=== PATIENT | male | born 1990 | race Caucasian/White ===

== ENCOUNTER 2020-12-15 21:16 | Emergency (ER) | payer SELFPAY ==
[2020-12-15] MEDS ORDERED: Sodium Chloride 0.9% 1,000 ML IV STA (21:50)
[2020-12-15] MEDS ORDERED: Ondansetron 4 MG/2 ML SDV IVPUSH ONE (21:50)
[2020-12-15] MEDS ORDERED: HYDROmorphone 0.5 MG/0.5 ML Syringe IVPUSH ONE ×2 (21:50→22:59)
[2020-12-15] MEDS ORDERED: Sodium Chloride 0.9% 10 ML SDV FLUSH ONE (21:57)
[2020-12-15] MEDS ORDERED: Iopamidol 755 Mg/ML 100 ML Bottle IVPUSH ONE (21:57)
[2020-12-15] MEDS ORDERED: Sodium Chloride 0.9% 100 ML IV SCH (22:00)
--- NOTE | 2020-12-15 22:19 | EDM.PDOC ---
<Teja Arnold - Last Filed: 12/16/20 08:23> ED HPI GENERAL MEDICAL PROBLEM - General Chief Complaint: Respiratory Problem Stated Complaint: LOW O2/SPITTING UP BLOOD Time Seen by Provider: 12/15/20 21:44 - Related Data Allergies Allergy/AdvReac Type Severity Reaction Status Date / Time No Known Allergies Allergy Verified 12/15/20 21:34 Home Meds: Home Meds Hydrocodone/Acetaminophen [HYDROcodone-Acetaminophen 5-325 MG] 5 - 325 mg PO Q4H PRN 12/15/20 [History] levoFLOXacin [Levaquin] 250 mg PO DAILY 12/15/20 [History] Acetaminophen/oxyCODONE [Percocet 325-10 MG] 1 - 2 tab PO Q6H PRN #20 tab 12/16/20 [Rx] Course - Re-Assessments/Exams Free Text/Narrative Re-Assessment/Exam: 12/16/20 07:[address] Cobb at 07:53. He reviewed the CT scan and agree that the patient has COVID-19, but not a great deal of pleural effusion. He did not feel that the patient's hypoxemia was related to the pleural effusion. He felt that the risk of complications from a thoracentesis would be high, and that the risks outweigh the benefit. 12/16/20 08:[address] Cobb discussed with the patient and his sister Ashlyn, over the phone. I will discharge the patient home with a prescription for Percocet. He already has supplemental oxygen finger pulse oximeter at home. He states that [place] about 100 miles away, therefore I am not going to refer him to our clinic, but he stated that he could arrange to establish a PCP near his home. I recommended that if he requires a significantly increasing need of oxygen to maintain an adequate SpO2, that he go to the nearest ED for reevaluation. Departure - Departure Time of Disposition: 08:24 Disposition: Home, Self-Care 01 Condition: Good Clinical Impression: COVID-19, Pleural effusion - Discharge Information *PRESCRIPTION DRUG MONITORING PROGRAM REVIEWED*: No *COPY OF PRESCRIPTION DRUG MONITORING REPORT IN PATIENT MERI: No Prescriptions: Acetaminophen/oxyCODONE [Percocet 325-10 MG] 1 - 2 tab PO Q6H PRN #20 tab PRN Reason: Pain (Severe 7-10) Instructions: COVID-19, Pleural Effusion Referrals: PCP,None [Primary Care Provider] - Forms: ED Department Discharge Additional Instructions: You were seen in the emergency room for left-sided chest pain in the setting of being diagnosed with COVID-19 on 11/22/2020. Work-up in the ER included several blood tests, a chest x-ray, a CT angiogram of your chest, and an ECG. The CT scan found a moderate-sized left-sided pleural effusion, but no pulmonary embolus. The pleural effusion is most likely the cause of your left-sided chest pain. Your case was discussed with our Surgeon, who reviewed your CT scan, and felt that the risks of trying to drain the fluid out of your chest outweighed the potential benefits. We recommend that you take [id number] ibuprofen, 3 tablets (600 mg) up to every 8 hours, with food, as needed for discomfort. A prescription for the opioid pain reliever Percocet has been provided to you. You may take 1 to 2 tablets of Percocet up to every 6 hours, as needed for pain not relieved by ibuprofen. If you take Percocet, do not drive or operate heavy machinery for 12 hours afterwards. Percocet may cause constipation, so consider taking a stool softener. Stay adequately hydrated. We recommend that you establish a primary care provider near where you live. We recommend that you continue to check your oxygen saturation several times a day. Your goal oxygen saturation is 92 to 94%. If you require a significantly increased need for supplemental oxygen in order to maintain an adequate oxygen saturation, please go to the nearest ER for reevaluation. <Iram Mullen - Last Filed: 12/18/20 15:18> ED HPI GENERAL MEDICAL PROBLEM - General Source of Information: Reports: Patient, Family, RN Notes Reviewed History Limitations: Reports: No Limitations - History of Present Illness INITIAL COMMENTS - FREE TEXT/NARRATIVE: Patient is a 30-year-old male presenting to the emergency department with complaints of hemoptysis, significant shortness of breath, and severe chest wall pain. He was diagnosed as Covid positive on November 22. He continues have cough and shortness of breath, therefore he was seen at [facility] on 05 December. He was diagnosed with pneumonia and started on a course of dexamethasone, azithromycin, and cefdinir. At that time, there was a small amount of blood in his sputum. Hemoptysis has continued. He was seen in the emergency department in [facility] on Wednesday. He had work-up there including CT angiogram of the chest. They confirm that he continues to have pneumonia and that his left lung "looks horrible ". They indicate that he likely needs referral to pulmonology. His oxygen saturation was found to be in the upper 80s and low 90s. He was sent home with oxygen to be used as needed as well as a new prescription for Levaquin and [place] for pain. He has been wearing 1 L of oxygen by nasal cannula at home with saturations in the low to mid 90s. He took a [place] around 7 PM this evening with little relief. Complains of intense left- sided chest wall pain worsened with deep breathing or coughing. Patient's girlfriend works at the hospital in [place] and questions the accuracy of the CT angiogram. They are requesting the test be repeated as she feels he may have a pulmonary embolus. Patient reports that the hemoptysis is worsening. Prior to his Covid diagnosis, patient had no chronic medical conditions. Left Chest Pain Score (Numeric/FACES): 10 Past Medical History HEENT History: Reports: Impaired Vision - Infectious Disease History Infectious Disease History: Reports: Novel Coronavirus Social & Family History - Tobacco Use Tobacco Use Status *Q: Never Tobacco User - Caffeine Use Caffeine Use: Reports: Coffee - Recreational Drug Use Recreational Drug Use: No ED ROS GENERAL - Review of Systems Review Of Systems: See Below Constitutional: Reports: No Symptoms. Denies: Fever, Chills HEENT: Reports: No Symptoms Respiratory: Reports: Shortness of Breath, Pleuritic Chest Pain, Cough, Sputum, Hemoptysis Cardiovascular: Reports: Dyspnea on Exertion. Denies: Palpitations, Syncope Endocrine: Reports: No Symptoms GI/Abdominal: Reports: No Symptoms : Reports: No Symptoms Musculoskeletal: Reports: Other (Significant left-sided chest wall pain.) Skin: Reports: No Symptoms Neurological: Reports: No Symptoms Psychiatric: Reports: No Symptoms Hematologic/Lymphatic: Reports: No Symptoms Immunologic: Reports: No Symptoms ED EXAM, GENERAL - Physical Exam Exam: See Below Exam Limited By: No Limitations General Appearance: Alert, Moderate Distress Respiratory/Chest: No Respiratory Distress, No Accessory Muscle Use, Other (Significantly decreased breath sounds throughout the left posterior lung qiu scattered rhonchi throughout both lungs. Significant left-sided chest wall tenderness to palpation.) Cardiovascular: Normal Peripheral Pulses, Regular Rate, Rhythm, No Edema, No Gallop, No JVD, No Murmur, No Rub GI/Abdominal: Normal Bowel Sounds, Soft, Non-Tender, No Organomegaly, No Distention, No Abnormal Bruit, No Mass Neurological: Alert, Oriented, CN II-XII Intact, Normal Cognition, Normal Gait, Normal Reflexes, No Motor/Sensory Deficits Psychiatric: Normal Affect, Normal Mood Skin Exam: Warm, Dry, Intact, Normal Color, No Rash #1 Interpretation EKG Date: 12/15/20 Time: 21:59 Rhythm: NSR Rate (Beats/Min): 113 Mobile: Normal P-Wave: Present QRS: Normal ST-T: Normal QT: Normal Course - Vital Signs Last Recorded V/S: Last Vital Signs Temp 97.0 F 12/15/20 21:24 Pulse 93 12/16/20 09:36 Resp 28 H 12/15/20 21:24 BP 114/75 12/16/20 09:36 Pulse Ox 92 L 12/16/20 11:13 - Orders/Labs/Meds Labs: Laboratory Tests 12/15/20 12/15/20 12/15/20 Range/Units 22:11 22:11 22:11 WBC 13.72 H (4.23-9.07) K/mm3 RBC 4.87 (4.63-6.08) M/mm3 Hgb 13.5 L (13.7-17.5) gm/dl Hct 43.2 (40.1-51.0) % MCV 88.7 (79.0-92.2) fl MCH 27.7 (25.7-32.2) pg MCHC 31.3 L (32.2-35.5) g/dl RDW Std Deviation 46.1 H (35.1-43.9) fL Plt Count 312 (163-337) K/mm3 MPV 9.6 (9.4-12.3) fl Neut % (Auto) 78.7 H (34.0-67.9) % Lymph % (Auto) 9.7 L (21.8-53.1) % [place] % (Auto) 10.4 (5.3-12.2) % Eos % (Auto) 0.3 L (0.8-7.0) Baso % (Auto) 0.1 (0.1-1.2) % Neut # (Auto) 10.79 H (1.78-5.38) K/mm3 Lymph # (Auto) 1.33 (1.32-3.57) K/mm3 [place] # (Auto) 1.43 H (0.30-0.82) K/mm3 Eos # (Auto) 0.04 (0.04-0.54) K/mm3 Baso # (Auto) 0.02 (0.01-0.08) K/mm3 D-Dimer, Quantitative 1.82 H (0.19-0.50) mg/L Sodium 134 L (136-145) mEq/L Potassium 4.9 (3.5-5.1) mEq/L Chloride 96 L (98-107) mEq/L Carbon Dioxide 30 (21-32) mEq/L Anion Gap 12.9 (5-15) BUN 10 (7-18) mg/dL Creatinine 1.0 (0.7-1.3) mg/dL Est Cr Clr Drug Dosing 113.56 mL/min Estimated GFR (MDRD) > 60 (>60) mL/min BUN/Creatinine Ratio 10.0 L (14-18) Glucose 109 H (70-99) mg/dL Calcium 9.8 (8.5-10.1) mg/dL Total Bilirubin 1.3 H (0.2-1.0) mg/dL AST 20 (15-37) U/L ALT 169 H (16-63) U/L Alkaline Phosphatase 134 H (46-116) U/L Troponin I < 0.017 (0.00-0.056) ng/mL C-Reactive Protein 23.5 H* (<1.0) mg/dL Total Protein 8.3 H (6.4-8.2) g/dl Albumin 3.1 L (3.4-5.0) g/dl Globulin 5.2 gm/dL Albumin/Globulin Ratio 0.6 L (1-2) Meds: Medications Discontinued Medications Generic Name Dose Route Start Last Admin Trade Name Freq PRN Reason Stop Dose Admin Hydromorphone HCl 0.5 mg 12/15/20 21:50 12/15/20 22:09 Hydromorphone 0.5 Mg/0.5 Ml Syringe IVPUSH 12/15/20 21:51 0.5 mg ONETIME ONE Administration Hydromorphone HCl 0.5 mg 12/15/20 22:59 12/15/20 23:06 Hydromorphone 0.5 Mg/0.5 Ml Syringe IVPUSH 12/15/20 23:00 0.5 mg ONETIME ONE Administration Hydromorphone HCl 1 mg 12/16/20 05:32 12/16/20 05:42 Hydromorphone 1 Mg/Ml Syringe IVPUSH 12/16/20 05:33 1 mg ONETIME ONE Administration Sodium Chloride 1,000 mls @ 150 mls/hr 12/15/20 21:50 12/15/20 22:09 Normal Saline IV 12/16/20 04:29 150 mls/hr NOW STA Administration Sodium Chloride 100 mls @ 65 mls/min 12/15/20 22:00 12/15/20 23:01 Normal Saline IV 65 mls/min ASDIRECTED MINA Administration Iopamidol 100 ml 12/15/20 21:57 12/15/20 23:01 Iopamidol 755 Mg/Ml 100 Ml Bottle IVPUSH 12/15/20 21:58 100 ml ONETIME ONE Administration Ondansetron HCl 4 mg 12/15/20 21:50 12/15/20 22:09 Ondansetron 4 Mg/2 Ml Sdv IVPUSH 12/15/20 21:51 4 mg ONETIME ONE Administration Oxycodone/Acetaminophen 2 tab 12/16/20 10:40 12/16/20 11:11 Acetaminophen/Oxycodone 325-5 Mg Tab PO 12/16/20 10:41 2 tab ONETIME ONE Administration Sodium Chloride 10 ml 12/15/20 21:57 12/15/20 23:01 Sodium Chloride 0.9% 10 Ml Sdv FLUSH 12/15/20 21:58 10 ml ONETIME ONE Administration - Re-Assessments/Exams Free Text/Narrative Re-Assessment/Exam: Patient is a 30-year-old male presenting to the emergency department complaints of severe left-sided chest wall pain, shortness of breath, cough, and hemoptysis. He was diagnosed with Covid early November and has been having symptoms since that time. He was evaluated in the emergency department and both [place] diagnosed with pneumonia put on antibiotics. Angiogram was completed and [place], however patient's girlfriend questions the accuracy of the study. They would like a repeat angiogram done. Patient is currently on Levaquin and hydrocodone with Tylenol. Oxygen saturations were 92% on room air with occasional desaturations to 88 to 89%. He has been wearing 1 L of oxygen by nasal cannula at home. We did apply oxygen at 1 L by nasal cannula as he feels it is easier for him to breathe with it on. On exam, sounds are significantly diminished throughout the left posterior lung qiu. He has diffuse left-sided chest wall tenderness which is worse with coughing or deep breathing. He is already completed a course of dexamethasone which she reports did not help. I have ordered blood work, EKG, CT angiogram of the chest. We will start IV fluids of NS at 150 mils per hour, Dilaudid 0.5 mg IV, and Zofran 4 mg IV. 12/15/20 23:42 Hematology significant for WBCs 13.72, D-dimer 1.82, total bili 1.3, ALT 169, CRP 23.5. Troponin is undetectably low. EKG shows no acute abnormalities. CT angiogram of the chest impression as follows: 1. Limited pulmonary arterial visualization as described. 2. There is no CT evidence of pulmonary central embolism. Peripheral emboli cannot be ruled out. 3. Extensive consolidation left lung with left-sided pleural effusion. Superimposed diffuse bilateral interstitial disease with some consolidation right lower lobe. Severe bilateral pneumonia suspected. Viral etiologies and atypical etiologies require consideration. Bacterial etiologies cannot be excluded. 4. Follow-up imaging studies recommended to assure complete resolution. 4. Adenopathy is likely reactive. Patient is somewhat more comfortable after the Dilaudid. Case was discussed with the general surgeon on-call, Dr. Garcia. She unfortunately does not do thoracenteses. The general surgeon on tomorrow morning, Dr. Cobb, however to my knowledge does do these. Unfortunately, we currently have no beds available in our facility and there are no beds available in our tertiary care facilities either. Plan will be to keep the patient in the emergency department this evening for pain management and supplemental oxygen. We will consult general surgery in the morning to see if they feel he would benefit from tho racentesis. Possibility of admission versus discharge home can be reassessed at that time depending how the patient is doing. Case was discussed with ER physician, Dr. Roche. He will assume care and disposition of the patient due to end of shift. Sepsis Event Note (ED) - Evaluation Sepsis Screening Result: No Definite Risk
[2020-12-16] MEDS ORDERED: HYDROmorphone 1 MG/ML Syringe IVPUSH ONE (05:32)
--- NOTE | 2020-12-16 07:18 | CT ---
CT chest Technique: Multiple axial sections through the chest were obtained. Intravenous contrast was utilized. Study has been performed as a pulmonary angiogram protocol. Comparison: No prior chest imaging is available. Findings: Pulmonary arteries are moderately well opacified. No discrete filling defects are seen to indicate pulmonary embolism. Thoracic aorta shows no aneurysm. Mildly prominent mediastinal lymph nodes are seen. Small to moderate sized pleural effusion is noted on the left side. Scattered areas of parenchymal densities are seen within the upper and lower lungs most prominent within the left lung base compatible with parenchymal change. Visualized upper abdominal structures show nothing acute. Bone window settings were reviewed which show no acute osseous abnormality. Impression: 1. No definite findings of pulmonary embolism. 2. Small to moderate size left-sided pleural effusion. 3. Patchy areas of increased density within both sides of the chest, worse within the left base. Findings most likely represent diffuse COVID pneumonia. 4. Mild adenopathy within the mediastinum which is likely reactive. Note: Follow-up study is recommended (4-6 months) to confirm pleural effusion and adenopathy resolve. Diagnostic code #3 I agree with preliminary report from [facility], finalized on 12/16/20, 12:19 AM CDT, Code 1
--- NOTE | 2020-12-16 07:59 | PCM.SN.2 ---
- Free Text/Narrative Note: General Surgery consulted this morning regarding possible therapeutic thoracentesis for left sided pleural effusion in patient with COVID pneumonia and hypoxia. On review of imaging, there appears to be little pleural fluid, with the primary abnormality being significant pulmonary consolidation. I think the risk outweighs the benefits of thoracentesis in this patient. Time Documentation
[2020-12-16] MEDS ORDERED: Acetaminophen/oxyCODONE 325-5 MG Tab PO ONE (10:40)
== END 2020-12-16 11:13 | disposition home or self-care (01) ==
LOC: JD.ED 21:16
DX: U07.1 COVID-19 (principal); J90 Pleural effusion, not elsewhere classified
CPT/HCPCS: 36415; 71275; 80053; 84484; 85025; 85379; 86140; 93005; 96374; 96375; 96376; 99285; A9270; J1170; J2405; J7030; Q9967